=== PATIENT | female | born 2000 | race Hispanic/Latino ===

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

== ENCOUNTER 2022-06-13 19:57 | Emergency (ER) | payer OTHER ==
[2022-06-13] MEDS ORDERED: Ibuprofen 800 MG TAB ONE (20:22)
== END 2022-06-13 22:03 | disposition home or self-care (01) ==
LOC: ERS 19:57
DX: S90.31XA Contusion of right foot, initial encounter (principal); W50.0XXA Accidental hit or strike by another person, initial encounter